=== PATIENT | female | born 1975 | race Two or more races ===

== ENCOUNTER 2021-11-19 12:37 | Emergency (ER) | payer OTHER ==
[2021-11-19] MEDS ORDERED: Ketorolac 30 MG/ML SDV IM ONE (13:13)
[2021-11-19] MEDS ORDERED: Ciprofloxacin 500 MG Tab PO ONE (14:48)
== END 2021-11-19 15:13 | disposition home or self-care (01) ==
LOC: JP.ED 12:37
DX: U07.1 COVID-19 (principal); Z88.0 Allergy status to penicillin
CPT/HCPCS: 36415; 74176; 74176-26; 81001; 85025; 87086; 87088; 87186; 96372; 99283; 99284-25; A9270-GY; J1885

== ENCOUNTER 2025-05-03 15:58 | Emergency (ER) | payer MEDICARE, MEDICAID ==
[2025-05-03 19:45] LABS: APPEARANCE,URINE CLEAR (CLEAR); GLUCOSE,URINE NEGATIVE (NEGATIVE); OCCULT BLOOD,URINE NEGATIVE (NEGATIVE)
[2025-05-03] MEDS: Ketorolac 30 MG/ML SDV IM ONE (19:54)
[2025-05-03 19:55] LABS: SQUAMOUS EPITHELIAL CELLS,UR FEW /HPF; UROTHELIAL CELLS,URINE NOT SEEN /HPF
== END 2025-05-03 20:15 | disposition home or self-care (01) ==
LOC: JP.ED 15:58
DX: M54.41 Lumbago with sciatica, right side (principal); E10.9 Type 1 diabetes mellitus without complications; Z88.0 Allergy status to penicillin; Z79.4 Long term (current) use of insulin
CPT/HCPCS: 81001; 96372; 99283; J1885